=== PATIENT | female | born 2000 | race African-American/Black ===

== ENCOUNTER 2020-12-11 09:40 | Outpatient (CLI) | payer OTHER, SELFPAY ==
[2020-12-11 10:02] LABS: Basophils Absolute Auto 0.1 K/mm3 (0.0-0.1); Basophils Percent Auto 0.7 % (0.2-1.2); Eosinophils Absolute Auto 0.2 K/mm3 (0-0.3); Hematocrit 36.9 % (37.0-47.0); Hemoglobin 11.5 g/dL (12.0-15.0); Immature Granulocyte Absolute 0.02 K/mm3 (0.00-0.031); Immature Granulocyte Percent A 0.2 % (0-0.5); Lymphocytes Absolute Auto 1.98 K/mm3 (0.9-3.2); Lymphocytes Percent Auto 24.5 % (18.3-44.2); Mean Corpuscular HGB Conc 31.2 g/dl (32-36); Mean Corpuscular Hemoglobin 27.1 pg (26-34); Mean Platelet Volume 10.5 fl (7.4-10.4); Monocytes Absolute Auto 0.9 K/mm3 (0.1-0.6); Neutrophils Absolute Auto 4.9 K/mm3 (1.3-6.7); Neutrophils Percent Auto 60.6 % (45.5-73.1); Platelet Count Result 227 k/mm3 (150-375); Red Blood Count 4.24 M/mm3 (4.2-5.4); Red Cell Distribution Width 14.3 % (11.5-14.5); White Blood Count 8.1 K/mm3 (4.5-10.0)
[2020-12-11 10:11] LABS: Alanine Aminotransferase 23 U/L (4-35); Albumin Level 4.2 g/dL (3.5-5.1); Alkaline Phosphatase 83 U/L (38-126); Anion Gap 10 mmol/L (8-16); Aspartate Amino Transferase 21 U/L (14-36); Bilirubin,Total 0.2 mg/dL (0.2-1.3); Blood Urea Nitrogen 9 mg/dL (7-17); Calcium 9.2 mg/dL (8.4-10.2); Carbon Dioxide 21 mmol/L (22-30); Chloride 103 mmol/L (98-107); Cholesterol 258 mg/dL (0-200); Estimated Glomerular Filt Rate > 60; Glucose 90 mg/dL (65-110); HDL Direct 43 mg/dL; Potassium 4.1 mmol/L (3.4-5.0); Sodium 134 mmol/L (137-145); Triglycerides 44 mg/dL (<150)
[2020-12-11 10:22] LABS: LDL Cholesterol Direct 164 mg/dL
[2020-12-11 10:34] LABS: Hemoglobin A1C 5.7 % (<5.7)
[2020-12-11 11:19] LABS: Free T4 Free Thyroxine 0.95 ng/mL (0.78-2.19); Vitamin D 25 Hydroxy 39.9 ng/mL
== END 2020-12-11 09:41 | disposition home or self-care (01) ==
LOC: ANHLAB 09:44
PROVIDERS: PCP Emergency Medicine; Visit Provider Nurse Practitioner Obstetrics & Gynecology
DX: Z00.00 Encounter for general adult medical examination without abnormal findings (principal)
CPT/HCPCS: 36415; 80053; 80061; 82306; 83036; 84439; 84443; 85025

== ENCOUNTER 2023-12-24 17:15 | Emergency (ER) | payer OTHER, SELFPAY ==
--- NOTE | ~2023-12-24 | XR_ITS ---
EXAM: XR knee RT min 4V DATE: 12/24/2023 17:35 HISTORY: knee swelling x 2 weeks . COMPARISON: None available. FINDINGS: Normal mineralization. No fracture or dislocation. No lytic or blastic lesion. Mild medial joint space narrowing. Mild medial compartment and patellofemoral compartment osteophytosis. No eros ion or periosteal change. Subcutaneous stranding over the patellar tendon with patellar tendon thicke yosef. IMPRESSION: Patellar tendon thickening and adjacent edema may reflect patellar tendon injury or chron ic tendinopathy. Reviewed, dictated and finalized at location K. IMPRESSION: Patellar tendon thickening and adjacent edema may reflect patellar tendon injury or chronic tendinopathy.
--- NOTE | 2023-12-24 17:16 | ED.EXTPRO ---
HPI - Extremity Problem General Chief complaint: Extremity Injury, Lower Stated complaint: Swollen Knee Time Seen by Provider: 12/24/23 17:16 Source: patient Mode of arrival: ambulatory Limitations: no limitations History of Present Illness HPI Narrative: Kacy is a 23-year-old female patient presenting to the clinic today with complaints of a right swollen knee. She reports that it has been swollen for 1 week. She denies any known injury to her right knee. Is not currently having any pain however she feels as though that knee feels heavy. Related Data Allergies Allergy/AdvReac Type Severity Reaction Status Date / Time No Known Allergies Allergy Verified 12/24/23 17:22 Review of Systems Review of Systems: Pertinent positives per HPI. Patient denies any fever, chills, rash, headache, visual changes, dizziness, cough, runny nose, sore throat, shortness of breath, chest pain, palpitations, nausea, vomiting, diarrhea, constipation, abdominal pain, or any urinary issues. PMFSH Past Medical History Medical History Migraines Seizures Yeast infection Surgical History Surgical History No history of previous surgery Social History Social History Smoking status: Never smoker Second hand tobacco smoke exposure: No Alcohol intake: never Substance use: never Comments At the time of my signature, I reviewed and agree with the nursing past medical, surgical, social, and family history. There is no relevant family history pertinent to the patient complaint. Exam Narrative: General: Well-developed, well nourished, in no apparent distress Head: Normocephalic, atraumatic. Cardio: Regular rate and rhythm, s1 and s2 normal, no murmur appreciated. Resp: Clear to auscultation bilaterally, no rhonchi, rales, wheezing or rubs. Musculoskeletal: No deformity, mild swelling to the right knee when compared to the left knee, non-tender to palpation, grossly normal range of motion, muscle strength strong and equal, peripheral pulse strong, no edema, no cyanosis, normal gait and station Course Course Emergency Course: Portions of this record may have been created with voice recognition software. Level of Care: Express Care Visit Vital Signs Vital signs: Vital Signs Temperature 36.4 C L 12/24/23 17:25 Pulse Rate 71 12/24/23 17:25 Respiratory Rate 15 12/24/23 17:25 Blood Pressure 115/74 12/24/23 17:25 Pulse Oximetry 100 12/24/23 17:25 Oxygen Delivery Room Air 12/24/23 17:25 Temperature 36.4 C L 12/24/23 17:25 Pulse Rate 71 12/24/23 17:25 Respiratory Rate 15 12/24/23 17:25 Blood Pressure 115/74 12/24/23 17:25 Pulse Oximetry 100 12/24/23 17:25 Oxygen Delivery Room Air 12/24/23 17:25 Vital signs reviewed MDM - Extremity (Nontraumatic) MDM Narrative Medical decision making narrative: At the time of visit patient is resting comfortably on the exam table. Patient appears to be nontoxic. Diagnostics: Right knee x-ray shows patellar tendon thickening and adjacent edema may reflect patellar tendon injury or chronic tendinopathy. Plan: Supportive measures were discussed with the patient and they voiced understanding discharge instructions and agrees to treatment plan. Return precautions reviewed Differential Diagnosis Differential diagnosis: Likely gout, cellulitis, lower extremity edema, deep vein thrombosis of lower extremity and other (Bursitis, knee strain, acute internal derangement of the right knee) Imaging Data Radiologist's impression: ITS Impressions Knee X-Ray 12/24/23 17:43 IMPRESSION: Patellar tendon thickening and adjacent edema may reflect patellar tendon injury or chronic tendinopathy. Discharge Plan Discharge Clinical Impression: Tendinopathy of patella,
[2023-12-24 17:25] VITALS: BP 115/74; PULSE 71; RESP 15; TEMP 36.4; O2SAT 100
== END 2023-12-24 17:55 | disposition home or self-care (01) ==
PROVIDERS: Emergency Provider Nurse Practitioner Family; PCP Emergency Medicine
DX: M76.51 Patellar tendinitis, right knee (principal); M25.461 Effusion, right knee
CPT/HCPCS: 73564; 99213; G0463